=== PATIENT | female | born 1950 | race Caucasian/White ===

== ENCOUNTER → 2017-02-15 | Outpatient (CLI) | payer MEDICARE, BC ==
--- NOTE | 2017-02-15 11:26 | RAD ---
Exam: PA and lateral chest radiograph History: Chest congestion with back pain for 2 weeks. Comparison: 02/04/2007. Findings: Cardiomediastinal silhouette is within normal limits for size. Bilateral lung fajardo are free of focal infiltrate. No pleural effusion is seen. Surgical clips are seen in the posterior mediastinum. Impression: No acute cardiopulmonary process.
== END | disposition home or self-care (01) ==
LOC: DXRADRC 11:09
PROVIDERS: ATTEND Physician Assistant Medical
DX: M54.9 Dorsalgia, unspecified (principal); R09.89 Other specified symptoms and signs involving the circulatory and respiratory systems
CPT/HCPCS: 71020

== ENCOUNTER → 2017-04-20 | Outpatient (CLI) | payer MEDICARE, BC ==
--- NOTE | 2017-04-20 09:33 | RAD ---
Chest, 2 views, 04/20/2017: History: Shortness of breath, chest pain Comparison is made to a study from 02/15/2017. The heart size and pulmonary vascularity are normal. There is mild tortuosity of the thoracic aorta. Surgical clips are present medially in the left upper chest. No pulmonary infiltrate is seen. There is no evidence of pleural fluid. IMPRESSION: No acute cardiopulmonary abnormality is detected.
== END | disposition home or self-care (01) ==
LOC: DXRADRC 09:00
PROVIDERS: ATTEND Physician Assistant Medical
DX: R06.02 Shortness of breath (principal); R07.9 Chest pain, unspecified
CPT/HCPCS: 71020

== ENCOUNTER → 2017-05-05 | Outpatient (CLI) | payer MEDICARE ==
--- NOTE | 2017-05-05 15:51 | RAD ---
Indication bilateral rib pain. Films targeted to the ribs were obtained. There are old, healed, posterior rib fractures on the right 5 through 8. No left rib anomalies are seen. IMPRESSION: Old right rib fractures. No acute rib fracture seen
== END | disposition home or self-care (01) ==
LOC: DXRAD 14:05
PROVIDERS: ATTEND Psychiatry & Neurology Neurology
DX: R07.81 Pleurodynia (principal)
CPT/HCPCS: 71110

== ENCOUNTER → 2017-05-13 | Outpatient (CLI) | payer MEDICARE ==
[~2017-05-13] MED LIST: IOHEXOL 300 MG/ML 75 ML VIAL. IV ONE
--- NOTE | 2017-05-13 09:33 | RAD ---
Indication: Chest wall pain. Axial imaging through the chest was performed after the administration of intravenous contrast. Correlation is made with prior CT from 02/18/2011. There is a low-density mass within the right lobe of the thyroid gland which may have been present on prior study. Dedicated thyroid ultrasound may be useful for further evaluation. No axillary lymphadenopathy is detected. No hilar or mediastinal lymphadenopathy is detected. No pericardial or pleural fluid is identified. There is a subpleural nodule in the posterior medial right upper lobe, image 28 measuring 5 mm. This appears stable when compared with prior exam. There is some scarring in the superior segment of the left lower lobe, similar to prior exam. Additional subpleural nodule posteriorly in the right lower lobe is noted measuring 6 mm, image 54. This was not well-seen on prior exam. Linear atelectasis or scarring in the right lower lobe is also noted. There are multiple old healed right posterior rib fractures. Kyphoplasty changes at the T12 level is seen for treatment of a compression fracture. There are age-indeterminate compression fractures at the T5 and T7 levels. No retropulsion is identified. Impression: 1. Essentially unremarkable CT of the chest. There are age-indeterminate compression fractures of T5 and T7. If there is concern for acuity, MRI may be useful for further evaluation. No other significant abnormality is detected. 2. Low-density lesion right lobe of the thyroid. Dedicated thyroid ultrasound would be useful for further evaluation. PQRS Compliance Statement: One or more of the following individualized dose reduction techniques were utilized for this examination: 1. Automated exposure control 2. Adjustment of the mA and/or kV according to patient size 3. Use of iterative reconstruction technique
== END | disposition home or self-care (01) ==
LOC: CT 08:08
PROVIDERS: ATTEND Physician Assistant Medical
DX: M48.54XA Collapsed vertebra, not elsewhere classified, thoracic region, initial encounter for fracture (principal); R91.1 Solitary pulmonary nodule
CPT/HCPCS: 71260; Q9967

== ENCOUNTER → 2017-05-25 | Outpatient (CLI) | payer MEDICARE ==
--- NOTE | 2017-05-25 11:54 | RAD ---
Bone densitometry scan, 05/25/2017: History: Ovarian failure, vertebral compression fracture The lumbar spine and right hip were examined utilizing a DEXA technique. The bone mineral density in the lumbar spine as measured from the L1-L4 levels is 1.07 g/sq cm. This yields a T score of -0.9 which is in the normal range. The total T score at the right hip is -1.3 compatible with osteopenia. IMPRESSION: 1. Osteopenia at the right hip. 2. Normal bone mineral density measurement in the lumbar spine.
== END | disposition home or self-care (01) ==
LOC: DXRAD 11:27
PROVIDERS: ATTEND Physician Assistant Medical
DX: E28.39 Other primary ovarian failure (principal); M85.80 Other specified disorders of bone density and structure, unspecified site; E07.89 Other specified disorders of thyroid
CPT/HCPCS: 77080

== ENCOUNTER → 2019-03-27 | Outpatient (CLI) | payer MEDICARE ==
--- NOTE | 2019-03-27 09:00 | RAD ---
Single view pelvis and two-view right hip dated 03/27/2019. No comparison available. Clinical data indication: Pain. FINDINGS: Single AP view pelvis and two-view right hip show normal bony alignment. No displaced fracture. No acute osseous or articular abnormality. Mild hypertrophic change at the right hip joint and left hip joint. Mild degenerative change of the pubic symphysis and bilateral SI joint. Pelvic ring is intact. IMPRESSION: 1. No evidence of displaced fracture. If there is clinical concern for occult fracture or insufficiency fracture, MRI would better evaluate. 2. Mild degenerative changes as described. Electronically signed by: Alexander Le MD (03/27/2019 8:57 AM) [id number]
== END | disposition home or self-care (01) ==
LOC: RAD 08:34
PROVIDERS: ATTEND Physician Assistant Medical
DX: M16.0 Bilateral primary osteoarthritis of hip (principal)
CPT/HCPCS: 73502

== ENCOUNTER 2021-01-15 09:38 | Emergency (ER) | payer MEDICARE ==
[~2021-01-15] VITALS: Ht 165.1 cm; Wt 101.0 kg
[2021-01-15] MEDS ORDERED: ONDANSETRON PF 4 MG/2 ML VIAL. ONE (09:52)
--- NOTE | 2021-01-15 10:09 | PHYS DOC ---
Past History Past Medical History: Other Past Surgical History: Cholecystectomy Smoking: Non-smoker Alcohol Use: Rarely Drug Use: None General Adult EDM: Chief Complaint: NAUSEA/VOMITING/DIARRHEA HPI: HPI: Patient is a 70-year-old female coming in for nausea, vomiting, diarrhea, body aches, chills, subjective fever since yesterday morning. Patient been able to keep anything down. Patient states she was discharged on admission hospital 1 week ago after a spinal fusion surgery. She had 101 degree fever at that time. Patient states she was feeling better and denies any sick contacts, recent travel, undercooked foods. Patient states she took a couple doses of a leftover antibiotic she had for urinary tract infection. Patient states she did receive her flu vaccine this year. She denies any new medications. Review of Systems: Review of Systems: All other systems within normal limits except for as noted in the HPI Current Medications: Current Meds: Current Medications Medications (Trade) Dose Ordered Sig/Syeda Start Time Stop Time Status Last Admin Dose Admin Ondansetron HCl (Zofran) 4 mg STK-MED ONCE 01/15/21 09:52 01/15/21 09:52 DC Allergies: Allergies: Allergies Coded Allergies Type Severity Reaction Last Updated Verified Penicillins Allergy Intermediate 01/15/21 Yes clarithromycin Allergy Intermediate 01/15/21 Yes Physical Exam: PE: Constitutional: Well developed, well nourished, no acute distress, non-toxic appearance. [] HENT: Normocephalic, atraumatic, bilateral external ears normal, nose normal. [] Eyes: PERRLA, conjunctiva normal, no discharge. [] Neck: No rigidity, supple, no stridor. [] Cardiovascular: Regular rate and rhythm, brisk cap refill [] Lungs & Thorax: Non labored symmetric respirations, no tachypnea or respiratory distress [] Abdomen: Soft, nondistended, generalized tenderness, no guarding or rebound. Skin: Warm, dry, no erythema, no rash, surgical incision on lumbar spine clean dry and intact. [] Back: Unremarkable Extremities: No deformities, range of motion grossly intact, no lower extremity edema [] Neurologic: Alert and oriented X 3, no focal deficits noted. [] Psychologic: Affect normal, judgement normal, mood normal. [] EKG: EKG: Sinus rhythm, heart centimeters per minute, normal axis, no Q waves, some T wave flattening in lateral leads. No ST elevation or depression, no ectopy. [] Radiology/Procedures: Radiology/Procedures: [] Heart Score: Risk Factors: Risk Factors: DM, Current or recent (<one month) smoker, HTN, HLP, family history of CAD, obesity. Risk Scores: Score 0 - 3: 2.5% MACE over next 6 weeks - Discharge Home Score 4 - 6: 20.3% MACE over next 6 weeks - Admit for Clinical Observation Score 7 - 10: 72.7% MACE over next 6 weeks - Early Invasive Strategies Course & Med Decision Making: Course & Med Decision Making Patient feeling better and tolerating p.o. Discussed hypokalemia I will continue to supplement as outpatient [] Aristides Disclaimer: Aristides Disclaimer: This electronic medical record was generated, in whole or in part, using a voice recognition dictation system. Departure Departure: Impression: Primary Impression: Nausea vomiting and diarrhea Additional Impression: Hypokalemia Disposition: 01 DC HOME SELF CARE/HOMELESS Condition: IMPROVED Referrals: YESENIA MALLORY (PCP) Patient Instructions: Nausea and Vomiting Additional Instructions: You have been tested for or diagnosed with COVID-19. It is an infection caused by a new type of coronavirus. COVID-19 will cause cold-like or mild flu symptoms in most. It can cause more severe symptoms like problems breathing in some. There is no treatment for COVID-19. The body will clear the infection over time. Self-care will help to ease discomfort. Steps to Take: Self-Care Rest as needed. Healthy habits may help you feel better. Steps include: Choose healthy foods including fruits and vegetables. Drink water throughout the day. Get plenty of sleep each night. If you smoke, try to quit. It may ease breathing. Avoid alcohol. Keep Others Healthy The virus can spread to others. Droplets are released every time you sneeze or cough. The droplets can get into the mouth, nose, or eyes of people near you and lead to infection. To lower the chances of spreading COVID-19 to others: Stay at home until your doctor has said it is safe to leave. If you tested positive this will mean staying isolated until both of the following are true: At least 7 days have passed since the start of illness. You are free of fever for at least 72 hours without the use of medicine. During this time: - Avoid public areas, events, or transportation. Do not return to work or school until your doctor has said it is safe to do so. - Call ahead if you need to go to a medical center. Let them know you may have COVID-19. It will help them guide you where to go. They may also ask you to wear a facemask when you come to the office. - If you call for emergency medical services, let them know you may have COVID- 19. While at home: - Try to avoid close contact with others. Stay about 6 feet away. - If possible, spend most of your time in a separate room from others. - Use a face mask if you will be in close contact with others such as sharing a room or vehicle. - Have someone wipe down common surfaces in the home. Use household quality process engineer every day on areas like doorknobs, counters, or sinks. - Cough or sneeze into a tissue. Throw the tissue away right after use. If a tissue is not available, cough or sneeze into your elbow. - Wash your hands often. Wash them after sneezing or coughing. Use soap and water and wash for at least 20 seconds. Alcohol based hand roller cleaner can be used if soap and water is not available. - Do not prepare food for others. Avoid sharing personal items like forks, spoons, or toothbrushes. - Avoid close contact with pets while you are sick. There is no evidence of the virus passing to pets. This is a safety step until more is known about this virus. Isolation can be frustrating. Social interaction can help. Keep in touch with friends and family through phone and tech options. You can still interact with others in your home, just keep a safe distance of about 6 feet. Follow-up: Your doctors office will check in with you to see if there are any changes in your health. You may be asked to keep track of symptoms to share with them. They will also let you know when you are clear to be in public again. Problems to Look Out For: Contact your doctor if your recovery is not going as you expect. Get emergency care if you have problems such as: - Trouble breathing - Nonstop chest pain or pressure - Changes in awareness, confusion, or problems waking - Lips or face have bluish color - Worsening of symptoms If you think you have an emergency, call for emergency medical services right away. As taken from [facility] Potassium Chloride (POTASSIUM CHLORIDE ) 20 Meq Tablet.er 20 MEQ PO DAILY for SUPPLEMENT for 5 Days, #5 TAB Prov: DEE WILLIS MD 01/15/21 Ondansetron (ONDANSETRON ODT) 4 Mg Tab.rapdis 1 TAB PO PRN Q6-8HRS PRN for NAUSEA, #16 TAB Prov: DEE WILLIS MD 01/15/21 DEE WILLIS MD Jan 15, 2021 10:09
[2021-01-15] MEDS ORDERED: ONDANSETRON PF 4 MG/2 ML VIAL. IVP ONE (10:15)
[2021-01-15] MEDS ORDERED: IV NORMAL SALINE 1,000ML 1,000 ML IV ONE (10:15)
[2021-01-15 10:54] LABS: BASO % 0 % (0-3); EOS # 0.1 x10^3/uL (0.0-0.7); EOS % 2 % (0-3); HEMATOCRIT 37.2 % (36.0-47.0); HEMOGLOBIN 12.4 g/dL (12.0-15.5); LYMPH # 0.4 x10^3/uL (1.0-4.8); LYMPH % 5 % (24-48); MEAN CORPUSCULAR HEMOGLOBIN 29 pg (25-35); MEAN CORPUSCULAR HGB CONC 33 g/dL (31-37); MEAN CORPUSCULAR VOLUME 87 fL (79-100); MONO # 0.5 x10^3/uL (0.0-1.1); MONO % 6 % (0-9); NEUT # 6.8 x10^3uL (1.8-7.7); NEUT % 87 % (31-73); PLATELET COUNT 316 x10^3/uL (140-400); RED BLOOD COUNT 4.26 x10^6/uL (3.50-5.40); RED CELL DISTRIBUTION WIDTH 13.8 % (11.5-14.5); WHITE BLOOD COUNT 7.8 x10^3/uL (4.0-11.0)
[2021-01-15 11:07] LABS: ALBUMIN 2.9 g/dL (3.4-5.0); ALBUMIN/GLOBULIN RATIO 0.7 (1.0-1.7); CALCIUM 8.1 mg/dL (8.5-10.1); CREATININE 0.8 mg/dL (0.6-1.0); GFR 70.9; TOTAL BILIRUBIN 0.7 mg/dL (0.2-1.0)
[2021-01-15 11:13] LABS: INFLUENZA A PATIENT NEGATIVE (NEGATIVE); INFLUENZA B PATIENT NEGATIVE (NEGATIVE)
--- NOTE | 2021-01-15 11:13 | EKG ---
[address] [address] Test Date: 2021-01-15 Test Time: 10:29:23 Pat Name: SOLE AGUILAR Department: Room: Gender: F Lead Applier: RICH : 1950 Requested By: DEE WILLIS Order Number: [id number] Reading MD: Measurements Intervals [place] Rate: 70 P: 65 [place]: 158 QRS: 34 QRSD: 90 T: 52 QT: 400 QTc: 435 Interpretive Statements SINUS RHYTHM NORMAL ECG RI6.02 Compared to ECG 01/15/2021 10:24:00 Sinus tachycardia no longer present
[2021-01-15 11:24] LABS: POTASSIUM 2.9 mmol/L (3.5-5.1)
[2021-01-15] MEDS ORDERED: POTASSIUM CHLORIDE 20 MEQ TABLET.ER. PO ONE (11:45)
[2021-01-15 12:01] LABS: BILIRUBIN,URINE SMALL (NEG); CLARITY,URINE CLEAR; COLOR,URINE YELLOW; GLUCOSE,URINE NEG (NEG); NITRITE,URINE NEG (NEG)
[2021-01-15 12:08] LABS: BACTERIA,URINE FEW /HPF (0-FEW); SQUAMOUS EPITHELIAL CELL,UR MANY /LPF
[2021-01-15] MEDS ORDERED: POTA20TA4 PO (12:57)
[2021-01-15] MEDS ORDERED: ONDA4TAB12 PO (12:57)
[2021-01-15 13:15] VITALS: BP 127/59
== END 2021-01-15 13:40 | disposition home or self-care (01) ==
LOC: ER 09:38
DX: E87.6 Hypokalemia (principal); R11.2 Nausea with vomiting, unspecified; R19.7 Diarrhea, unspecified; Z20.822 Contact with and (suspected) exposure to COVID-19; Z90.49 Acquired absence of other specified parts of digestive tract; Z88.0 Allergy status to penicillin; Z88.1 Allergy status to other antibiotic agents
CPT/HCPCS: 36415; 80053; 81001; 83605; 83690; 84484; 85025; 87040; 87086; 87804; 93005; 96361; 96374; 96375; 99285; C9803; J2405; J3010; J7030; U0003